=== PATIENT | female | born 1970 | race Caucasian/White ===

== ENCOUNTER 2022-03-12 00:48 | Emergency (ER) | payer BC, OTHER ==
[~2022-03-12] VITALS: Ht 165.1 cm; Wt 75.2 kg
[2022-03-12] MEDS ORDERED: DIAZEPAM INJ 10 MG/2 ML (VALIUM) SYR IVP STA (01:12)
[2022-03-12] MEDS ORDERED: NS IV 1000 ML 1,000 ML IV SCH (01:15)
[2022-03-12] MEDS ORDERED: ONDANSETRON 4 MG/2 ML (SDV) Z0FRAN IVP ONE (01:15)
--- NOTE | 2022-03-12 01:17 | ED General ---
General Chief Complaint: Dizziness/Syncope Stated Complaint: DIZZY,HOT Nursing Triage Note: PT ARRIVAL TO ER WITH COMPLAINT OF DIZZINESS AND HOT. PT STATES THAT SHE WENT TO BED ABOUT 2200 FEELING FINE, AND WOKE UP AT 0000 AND FELT LIKE THE ROOM WAS SPINNING AND WAS VERY HOT. PT STATES THAT SHE DID THROW UP ONCE. PT DENIES CHEST PAIN. Source of Information: Patient Exam Limitations: No Limitations History of Present Illness Date Seen by Provider: March 12, 2022 Time Seen by Provider: 01:05 Initial Comments Patient is a 52-year-old female who presents to the emergency department today with a chief complaint of and feeling very dizzy, lightheaded, diaphoretic nauseous with vomiting. Patient states she went to bed feeling normal at about 10:00. She woke up at midnight feeling very dizzy. She got up to go to the ba throom came back to the bed was drenched in sweat and became very nauseous and vomited. She states she feels most comfortable lying on her right side, not as dizzy. She feels much more dizzy when she sits up and moves. She has had vertigo before but not this bad. She denies any headache or visual changes. Denies chest pain, back pain and extremity pain. She is not short of breath. She does not have abdominal pain. She has had no diarrhea or urinary complaints. No falls or head trauma. She does take medications for hypertension. She is on antidepressants. She is not a smoker. No first-degree relatives with a history of early coronary disease. Her grandfather did from a heart attack in his 50s however. She has not taken any medications for h er symptoms. She has had a mild cough since the beginning of the week. No fevers or chills associated. No URI symptoms other than the cough. All other review of systems reviewed and negative except as stated. Timing/Duration: 1 Hour Severity: Severe Associated Systoms: Diaphoresis, Malaise, Nausea/Vomiting, Other (dizziness) Allergies and Home Medications Allergies Coded Allergies: No Known Drug Allergies (Unverified , 03/12/22) Patient Home Medication List Home Medication List Reviewed: Yes Review of Systems Review of Systems Constitutional: see HPI EENTM: no symptoms reported Respiratory: cough Cardiovascular: no symptoms reported Gastrointestinal: nausea, vomiting Genitourinary: no symptoms reported Musculoskeletal: no symptoms reported Skin: no symptoms reported All Other Systems Reviewed Negative Unless Noted: Yes Past Wshzrsz-Zmcmvt-Najsms Hx Patient Social History Tobacco Use?: No Use of E-Cig and/or Vaping dev: No Substance use?: No Alcohol Use?: Yes Alcohol type: Beer, Wine Alcohol Frequency: Couple times a week Pt feels they are or have been: No Immunizations Up To Date Influenza Vaccine Up-to-Date: No; Not Current COVID19 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 oz. kg; 27.00 BMI Method: General Appearance: WD/WN, Anxious Eyes: Bilateral Eye Normal Inspection, Bilateral Eye PERRL, Bilateral Eye EOMI HEENT: PERRL/EOMI, TMs Normal, Pharynx Normal Neck: Normal Inspection Respiratory: Lungs Clear, Normal Breath Sounds, No Accessory Muscle Use, No Respiratory Distress Cardiovascular: Regular Rate, Rhythm, Normal Peripheral Pulses Gastrointestinal: Non Tender, Soft Extremity: Normal Inspection, Normal Range of Motion, Non Tender, No Calf Tenderness Neurologic/Psychiatric: Alert, Oriented x3, No Motor/Sensory Deficits, Normal Mood/Affect, access spec II-XII Norm as Tested, Other (no nystagmus appreciated, however on EOM testing with lateral gaze to the right she became extremely nauseated and vomited.) Skin: Normal Color, Warm/Dry Progress/Results/Core Measures Suspected Sepsis SIRS Temperature: Pulse: 95 Respiratory Rate: 18 Laboratory Tests 03/12/22 01:23: White Blood Count 8.8 Blood Pressure 141 /101 Mean: 114 Laboratory Tests 03/12/22 01:23: Creatinine 0.84, Platelet Count 212 Results/Orders Lab Results Laboratory Tests Test 03/12/22 01:23 Range/Units White Blood Count 8.8 4.3-11.0 10^3/uL Red Blood Count 4.57 3.80-5.11 10^6/uL Hemoglobin 13.4 11.5-16.0 g/dL Hematocrit 41 35-52 % Mean Corpuscular Volume 89 80-99 fL Mean Corpuscular Hemoglobin 29 25-34 pg Mean Corpuscular Hemoglobin Concent 33 32-36 g/dL Red Cell Distribution Width 12.4 10.0-14.5 % Platelet Count 212 130-400 10^3/uL Mean Platelet Volume 10.8 9.0-12.2 fL Immature Granulocyte % (Auto) 0 % Neutrophils (%) (Auto) 56 42-75 % Lymphocytes (%) (Auto) 36 12-44 % Monocytes (%) (Auto) 6 0-12 % Eosinophils (%) (Auto) 2 0-10 % Basophils (%) (Auto) 1 0-10 % Neutrophils # (Auto) 4.9 1.8-7.8 10^3/uL Lymphocytes # (Auto) 3.1 1.0-4.0 10^3/uL Monocytes # (Auto) 0.5 0.0-1.0 10^3/uL Eosinophils # (Auto) 0.2 0.0-0.3 10^3/uL Basophils # (Auto) 0.1 0.0-0.1 10^3/uL Immature Granulocyte # (Auto) 0.0 0.0-0.1 10^3/uL Sodium Level 142 135-145 MMOL/L Potassium Level 3.5 L 3.6-5.0 MMOL/L Chloride Level 108 H 98-107 MMOL/L Carbon Dioxide Level 21 21-32 MMOL/L Anion Gap 13 5-14 MMOL/L Blood Urea Nitrogen 15 7-18 MG/DL Creatinine 0.84 0.60-1.30 MG/DL Estimat Glomerular Filtration Rate 83 BUN/Creatinine Ratio 18 Glucose Level 105 70-105 MG/DL Calcium Level 9.4 8.5-10.1 MG/DL My Orders Orders - ALEJANDRO JONES MD Ed Iv/Invasive Line Start (03/12/22 01:12) Cbc With Automated Diff (03/12/22 01:12) Basic Metabolic Panel (03/12/22 01:12) Ns Iv 1000 Ml (Sodium Chloride 0.9%) (03/12/22 01:15) Ondansetron Injection (Zofran Injectio (03/12/22 01:15) Diazepam Injection (Valium Injection) (03/12/22 01:12) Ekg Tracing (03/12/22 01:17) Medications Given in ED Current Medications Medications Dose Ordered Sig/Cally Route Start Time Stop Time Status Last Admin Dose Admin Ondansetron HCl 4 mg ONCE ONCE IVP 03/12/22 01:15 03/12/22 01:16 DC 03/12/22 01:23 4 MG Vital Signs/I&O 03/12/22 01:04 Temp 36.6 Pulse 95 Resp 18 B/P (MAP) 141/101 (114) Pulse Ox 97 O2 Delivery Room Air Capillary Refill : Less Than 3 Seconds Blood Pressure Mean: 114 Progress Note : Time: 02:25 Progress Note Feeling much better. Able to sit up and look around the room without precipitating severe vertigo symptoms and nausea and vomiting. She does have a little nystagmus to the left more so than the right. She states she has a little bit of dizziness remaining but definitely much better than at presentation will send home with rx for meclizine, valium (2mg PO) and zofran. Patients labs are normal. Return precautions discussed. She has follow-up with her family doctor in [facility]. VSS. Will d/c to home. Departure Impression Primary Impression: Acute vertigo with vomiting and inability to stand Disposition: 01 HOME, SELF-CARE Condition: Improved Departure-Patient Inst. Decision time for Depature: 02:26 Referrals: [facility] (PCP) Primary Care Physician Patient Instructions: Vertigo ED Add. Discharge Instructions: Drink plenty fluids to stay well-hydrated. You can take the meclizine every 6 hours as needed for dizziness. This will not make you sleepy as the Valium. You can take the Valium every 8 hours as needed for worsening dizziness. Zofran every 8 hours as needed for nausea. If you develop a severe headache, fever, vision changes or persistent vomiting that is not relieved by the medications, please come back to the emergency department for reevaluation. It may take a couple of days for your symptoms to improve Scripts Ondansetron (Ondansetron Odt) 4 Mg Tab.rapdis 4 MG PO Q8H PRN for nausea, #20 TAB Prov: ALEJANDRO JONES MD 03/12/22 Diazepam (Diazepam) 2 Mg Tablet 2 MG PO Q8H PRN for dizziness, #10 TAB Prov: ALEJANDRO JONES MD 03/12/22 Meclizine HCl (Meclizine HCl) 25 Mg Tablet 25 MG PO Q6H PRN for dizziness, #20 TAB Prov: ALEJANDRO JONES MD 03/12/22 Work/School Note: Work Release Form Date Seen in the Emergency Department: March 12, 2022 Return to Work: March 13, 2022 ALEJANDRO JONES MD March 12, 2022 01:17
[2022-03-12 01:30] LABS: BASOPHILS # (AUTO) 0.1 10^3/uL (0.0-0.1); BASOPHILS % (AUTO) 1 % (0-10); EOSINOPHILS # (AUTO) 0.2 10^3/uL (0.0-0.3); EOSINOPHILS % (AUTO) 2 % (0-10); HEMATOCRIT 41 % (35-52); HEMOGLOBIN 13.4 g/dL (11.5-16.0); LYMPHOCYTES # (AUTO) 3.1 10^3/uL (1.0-4.0); LYMPHOCYTES % (AUTO) 36 % (12-44); MEAN CORPUSCULAR HEMOGLOBIN 29 pg (25-34); MEAN CORPUSCULAR HGB CONC 33 g/dL (32-36); MEAN CORPUSCULAR VOLUME 89 fL (80-99); MEAN PLATELET VOLUME 10.8 fL (9.0-12.2); MONOCYTES # (AUTO) 0.5 10^3/uL (0.0-1.0); MONOCYTES % (AUTO) 6 % (0-12); NEUTROPHILS # (AUTO) 4.9 10^3/uL (1.8-7.8); NEUTROPHILS % (AUTO) 56 % (42-75); PLATELET COUNT 212 10^3/uL (130-400); WHITE BLOOD COUNT 8.8 10^3/uL (4.3-11.0)
[2022-03-12 01:48] LABS: POTASSIUM 3.5 MMOL/L (3.6-5.0)
[2022-03-12 01:49] LABS: CALCIUM 9.4 MG/DL (8.5-10.1)
[2022-03-12 01:54] LABS: CREATININE SERUM 0.84 MG/DL (0.60-1.30)
[2022-03-12] MEDS ORDERED: ONDA4TAB11 PO (02:28)
[2022-03-12] MEDS ORDERED: DIAZ2TAB2 PO (02:28)
[2022-03-12] MEDS ORDERED: MECL-149 PO (02:28)
[2022-03-12 02:41] VITALS: BP 139/74
== END 2022-03-12 02:41 | disposition home or self-care (01) ==
LOC: ER 00:51
DX: H81.10 Benign paroxysmal vertigo, unspecified ear (principal); R11.2 Nausea with vomiting, unspecified
CPT/HCPCS: 36415; 80048; 85025; 93005